=== PATIENT | female | born 1995 | race Caucasian/White ===

== ENCOUNTER 2016-11-28 03:34 | Emergency (ER) | payer OTHER ==
[~2016-11-28] VITALS: Ht 175.3 cm; Wt 59.1 kg
[~2016-11-28 03:34] MED LIST: ZOFRAN 4MG T4 MG/TAB PO
[2016-11-28 03:49] VITALS: BP 146/91; TEMP 98.2
[2016-11-28] MEDS ORDERED: PRILOTC (03:52)
[2016-11-28] MEDS ORDERED: BIRTH CONTROL (03:52)
[2016-11-28] MEDS ORDERED: ZYRTEC5 MG PO (03:53)
[2016-11-28 04:31] LABS: COLLECTION METHOD CLEAN CATCH
[2016-11-28 04:35] LABS: BASO % 0.2 % (0.0-2.0); EOS # 0.4 (0.0-0.7); EOS % 4.5 % (0-4.0); GRAN # 6.2 (1.4-6.5); HEMATOCRIT 39.7 % (37.0-47.0); HEMOGLOBIN 13.4 g/dl (12.5-16.0); LYMPH % 21.1 % (20.0-51.0); MEAN CELL VOLUME 92 fl (80.0-100.0); MEAN CORPUSCULAR HEMOGLOBIN 31 pg (27.0-31.0); MEAN CORPUSCULAR HGB CONC 34 g/dl (33.0-37.0); MEAN PLATELET VOLUME 9.8 fl (7.4-10.4); MONO # 0.8 (0.1-0.6); PLATELET COUNT 340 K/mm3 (130-400); WHITE BLOOD COUNT 9.5 K/mm3 (4.8-10.8)
[2016-11-28 04:40] LABS: MUCOUS Present /lpf; PH 5 (5-8); URINE APPEARANCE Clear; URINE BACTERIA None Seen /hpf; URINE BILIRUBIN Negative (NEGATIVE); URINE BLOOD Negative (NEGATIVE); URINE COLOR Yellow; URINE GLUCOSE Negative (NEGATIVE); URINE KETONE Negative (NEGATIVE); URINE LEUKOCYTE ESTERASE Negative (NEGATIVE); URINE PROTEIN(semi-quant) Negative (NEGATIVE); URINE RBC 0-2 /hpf; URINE WBC 0-2 /hpf
[2016-11-28 04:47] LABS: ALBUMIN 4.2 gm/dL (3.5-5.0); BILIRUBIN,TOTAL 0.8 mg/dL (0.0-1.0); CALCIUM 9.2 mg/dL (8.4-10.2); CREATININE, serum 0.91 mg/dL (0.52-1.25); POTASSIUM 3.4 mmol/L (3.4-5.0); TOTAL PROTEIN 7.3 gm/dL (6.4-8.2)
[2016-11-28] MEDS ORDERED: CARAFATE 1GM1 G PO (05:43)
[2016-11-28] MEDS ORDERED: ZOFRAN 4MG T4 MG/TAB PO (05:43)
[2016-11-28 06:52] VITALS: PULSE 80
== END 2016-11-28 06:53 | disposition home or self-care (01) ==
LOC: COL.ER 03:34
PROVIDERS: Emergency Medicine
DX: R10.13 Epigastric pain (principal); R11.2 Nausea with vomiting, unspecified; R19.7 Diarrhea, unspecified; K21.9 Gastro-esophageal reflux disease without esophagitis
CPT/HCPCS: J2405; J7030

== ENCOUNTER → 2016-12-26 | Outpatient (CLI) | payer OTHER ==
[~2016-12-26] MED LIST changes: +BIRTH CONTROL; +CARAFATE 1GM1 G PO; +PRILOTC; +ZYRTEC5 MG PO
== END ==
LOC: COL.RAD 14:50
DX: J32.9 Chronic sinusitis, unspecified (principal)